=== PATIENT | female | born 1960 | race Caucasian/White ===

== ENCOUNTER 2017-03-30 09:07 | Emergency (ER) | payer BC ==
[~2017-03-30] VITALS: Ht 160 cm; Wt 52.7 kg
[2017-03-30 09:12] VITALS: TEMP 98.2
[2017-03-30] MEDS ORDERED: TOPROL XL 25MG25 MG PO (09:16)
[2017-03-30] MEDS ORDERED: SYNTHROID0.088 MG/T PO (09:16)
[2017-03-30] MEDS ORDERED: ZOLOFT 50MG50 MG PO (09:16)
[2017-03-30] MEDS ORDERED: AMBIEN 5MG TABLE5 MG PO (09:17)
[2017-03-30] MEDS ORDERED: MAXALT10 MG PO (09:17)
[2017-03-30] MEDS ORDERED: KLONOPIN 1MG1 MG PO (09:17)
[2017-03-30 10:01] LABS: BASO # 0.1 (0.0-0.2); BASO % 0.9 % (0.0-2.0); EOS # 0.1 (0.0-0.7); GRAN # 4.1 (1.4-6.5); GRAN % 64.1 % (42.2-75.2); HEMATOCRIT 41.7 % (37.0-47.0); HEMOGLOBIN 14.2 g/dl (12.5-16.0); LYMPH # 1.7 (1.2-3.4); LYMPH % 26.8 % (20.0-51.0); MEAN CELL VOLUME 90 fl (80.0-100.0); MEAN CORPUSCULAR HEMOGLOBIN 31 pg (27.0-31.0); MEAN CORPUSCULAR HGB CONC 34 g/dl (33.0-37.0); MEAN PLATELET VOLUME 10.2 fl (7.4-10.4); MONO # 0.4 (0.1-0.6); PLATELET COUNT 273 K/mm3 (130-400); RED BLOOD COUNT 4.64 M/mm3 (4.10-5.30); REDCELL DISTRIBUTION WIDTH-CV 12.4 % (11.5-14.5); WHITE BLOOD COUNT 6.5 K/mm3 (4.8-10.8)
[2017-03-30 10:12] LABS: ADJUSTED CALCIUM 9.4 mg/dL (8.4-10.2); ALBUMIN 4.3 gm/dL (3.5-5.0); BILIRUBIN,TOTAL 0.8 mg/dL (0.0-1.0); CALCIUM 9.6 mg/dL (8.4-10.2); CREATININE, serum 0.67 mg/dL (0.52-1.25); POTASSIUM 3.7 mmol/L (3.4-5.0); TOTAL PROTEIN 7.1 gm/dL (6.4-8.2)
[2017-03-30 10:43] LABS: THYROID STIMULATING HORMONE 2.18 uIU/mL (0.465-4.680)
[2017-03-30 10:57] LABS: PH 8 (5-8); SQUAMOUS EPITHELIAL 0-2 /hpf; URINE APPEARANCE Clear; URINE BACTERIA None Seen /hpf; URINE BILIRUBIN Negative (NEGATIVE); URINE BLOOD Negative (NEGATIVE); URINE COLOR Yellow; URINE GLUCOSE Negative (NEGATIVE); URINE KETONE Trace (NEGATIVE); URINE RBC 0-2 /hpf; URINE UROBILINOGEN Negative (NEGATIVE); URINE WBC 0-2 /hpf
[2017-03-30] MEDS ORDERED: ZOFRAN 4MG T4 MG/TAB PO (13:43)
[2017-03-30 13:50] VITALS: BP 125/71; PULSE 90
== END 2017-03-30 13:50 | disposition home or self-care (01) ==
LOC: COL.ER 09:07
PROVIDERS: Emergency Medicine
DX: E86.0 Dehydration (principal); G43.909 Migraine, unspecified, not intractable, without status migrainosus; E03.9 Hypothyroidism, unspecified; Z98.890 Other specified postprocedural states
CPT/HCPCS: J2550; J7030

== ENCOUNTER → 2017-04-07 | Outpatient (CLI) | payer BC ==
[~2017-04-07] MED LIST: AMBIEN 5MG TABLE5 MG PO; KLONOPIN 1MG1 MG PO; MAXALT10 MG PO; SYNTHROID0.088 MG/T PO; TOPROL XL 25MG25 MG PO; ZOFRAN 4MG T4 MG/TAB PO; ZOLOFT 50MG50 MG PO
== END ==
LOC: MC.RAD 14:07
DX: Z12.31 Encounter for screening mammogram for malignant neoplasm of breast (principal)

== ENCOUNTER → 2018-06-13 | Outpatient (CLI) | payer BC | LOC: MC.RAD 14:07 | DX: Z12.31 Encounter for screening mammogram for malignant neoplasm of breast (principal) ==

== ENCOUNTER 2019-01-17 09:19 | Emergency (ER) | payer BC ==
[~2019-01-17] VITALS: Ht 160 cm; Wt 49.1 kg
[2019-01-17 09:24] VITALS: TEMP 97.9
[2019-01-17] MEDS ORDERED: TYMLOS1.56 ML SQ (09:50)
[2019-01-17 09:51] LABS: BASO # 0.1 (0.0-0.2); BASO % 0.7 % (0.0-2.0); EOS # 0.2 (0.0-0.7); GRAN # 4.9 (1.4-6.5); HEMATOCRIT 43.1 % (37.0-47.0); HEMOGLOBIN 14.3 g/dl (12.5-16.0); LYMPH # 1.9 (1.2-3.4); LYMPH % 25.7 % (20.0-51.0); MEAN CELL VOLUME 93 fl (80.0-100.0); MEAN CORPUSCULAR HEMOGLOBIN 31 pg (27.0-31.0); MEAN CORPUSCULAR HGB CONC 33 g/dl (33.0-37.0); MEAN PLATELET VOLUME 10.1 fl (7.4-10.4); MONO # 0.3 (0.1-0.6); MONO % 4.3 % (1.7-9.3); PLATELET COUNT 257 K/mm3 (130-400); RED BLOOD COUNT 4.65 M/mm3 (4.10-5.30); REDCELL DISTRIBUTION WIDTH-CV 12.5 % (11.5-14.5)
[2019-01-17] MEDS ORDERED: PHENERGAN 25 TA25 MG PO (09:52)
[2019-01-17 10:09] LABS: ALANINE AMINOTRANSFERASE 7 U/L (9-52); ALBUMIN 4.4 gm/dL (3.5-5.0); ALKALINE PHOSPHATASE 66 U/L (50-136); ANION GAP 9 mmol/L (7-16); AST,SGOT 31 U/L (15-37); BILIRUBIN,TOTAL 0.6 mg/dL (0.0-1.0); BLOOD UREA NITROGEN 18 mg/dL (7-17); CALCIUM 9.8 mg/dL (8.4-10.2); CARBON DIOXIDE 31 mmol/L (22-30); CHLORIDE 102 mmol/L (98-107); CREATININE, serum 0.76 (0.52-1.25); GLUCOSE 96 mg/dL (74-106); SODIUM 142 mmol/L (137-145); TOTAL PROTEIN 7.6 gm/dL (6.4-8.2)
[2019-01-17 10:11] LABS: C-REACTIVE PROTEIN < 0.5 mg/dL (0.0-0.9)
[2019-01-17 12:54] LABS: COLLECTION METHOD CLEAN CATCH
[2019-01-17 13:00] LABS: MUCOUS Present /lpf; PH 7 (5-8); SQUAMOUS EPITHELIAL 0-2 /hpf; URINE APPEARANCE Clear; URINE BACTERIA None Seen /hpf; URINE BILIRUBIN Negative (NEGATIVE); URINE BLOOD Negative (NEGATIVE); URINE COLOR Yellow; URINE GLUCOSE Negative (NEGATIVE); URINE KETONE Trace (NEGATIVE); URINE LEUKOCYTE ESTERASE Negative (NEGATIVE); URINE NITRATE Negative (NEGATIVE); URINE PROTEIN(semi-quant) Negative (NEGATIVE); URINE RBC None Seen /hpf; URINE UROBILINOGEN Negative (NEGATIVE)
[2019-01-17 13:42] VITALS: BP 125/59; PULSE 69
== END 2019-01-17 13:49 | disposition home or self-care (01) ==
LOC: COL.ER 09:19
PROVIDERS: Physician Assistant
DX: E86.0 Dehydration (principal); R19.7 Diarrhea, unspecified; E03.9 Hypothyroidism, unspecified; K58.9 Irritable bowel syndrome, unspecified; Z88.0 Allergy status to penicillin; Z88.2 Allergy status to sulfonamides; Z88.5 Allergy status to narcotic agent; Z98.890 Other specified postprocedural states
CPT/HCPCS: J2405; J7030

== ENCOUNTER 2021-05-20 08:45 | Outpatient (CLI) | payer BC ==
[~2021-05-20] VITALS: Ht 160 cm; Wt 54.7 kg
[2021-05-20] VITALS (8 sets, daily range): BP systolic 97–113; BP diastolic 48–74; PULSE 73–84; TEMP 98.8–99.1
[~2021-05-20 08:45] MED LIST changes: +BELSOMRA5 MG PO; +MIRAPEX0.25 MG PO; +PHENERGAN 25 TA25 MG PO; -SYNTHROID0.088 MG/T PO; +TIROSINT50 MC1 PO; +TIROSINT75 MC1 PO; +TYMLOS1.56 ML SQ; +ZOLOFT 100MG100 MG PO
[2021-05-20] MEDS ORDERED: PROAIR HFA0.09 MG/AC IH (08:59)
== END 2021-05-20 10:15 | disposition home or self-care (01) ==
LOC: EUO 08:45
DX: U07.1 COVID-19 (principal)
CPT/HCPCS: M0245

== ENCOUNTER 2021-05-30 15:56 | Outpatient (CLI) | payer BC ==
[~2021-05-30 15:56] MED LIST changes: +PROAIR HFA0.09 MG/AC IH
[2021-05-30 16:25] VITALS: BP 109/58; PULSE 88; TEMP 98.1
== END 2021-05-30 17:27 ==
LOC: EUO 15:56
DX: R11.2 Nausea with vomiting, unspecified (principal); R19.7 Diarrhea, unspecified
CPT/HCPCS: J7030

== ENCOUNTER 2021-09-12 20:04 | Emergency (ER) | payer BC ==
[~2021-09-12] VITALS: Ht 160 cm; Wt 56.8 kg
[2021-09-12 20:46] VITALS: TEMP 97
[2021-09-12 21:27] VITALS: BP 138/78; PULSE 79
== END 2021-09-12 21:27 | disposition home or self-care (01) ==
LOC: COL.ER 20:04
DX: I10 Essential (primary) hypertension (principal); E03.9 Hypothyroidism, unspecified; Z79.890 Hormone replacement therapy